=== PATIENT | female | born 1975 | race African-American/Black ===

== ENCOUNTER 2019-04-03 03:17 | Emergency (ER) | payer MEDICAID ==
[~2019-04-03] VITALS: Ht 157.5 cm; Wt 64.0 kg
[2019-04-03] MEDS ORDERED: IBUPROFEN 600MG TABLET PO ONE (07:30)
[2019-04-03 07:53] VITALS: BP 132/74
== END 2019-04-03 08:12 | disposition home or self-care (01) ==
LOC: ER 03:17
DX: S80.01XA Contusion of right knee, initial encounter (principal); Y04.8XXA Assault by other bodily force, initial encounter; W18.39XA Other fall on same level, initial encounter; Y93.89 Activity, other specified; Y92.89 Other specified places as the place of occurrence of the external cause; Z96.651 Presence of right artificial knee joint
CPT/HCPCS: 73562; 99283